=== PATIENT | male | born 1995 | race Caucasian/White ===

== ENCOUNTER → 2016-07-30 | Outpatient (CLI) | payer OTHER | LOC: BMCIMAGING 13:07 | PROVIDERS: ATTEND Family Medicine | DX: R68.89 Other general symptoms and signs (principal) | CPT/HCPCS: 76536-PO ==

== ENCOUNTER 2017-06-30 20:18 | Emergency (ER) | payer OTHER ==
--- NOTE | 2017-06-30 20:43 | EDPHY ---
H & P Stated Complaint: Pt was running and twisted his left ankle Source: Patient Exam Limitations: No limitations - Personal History Current Tetanus/Diphtheria Vaccine: Yes Current Tetanus Diphtheria and Acellular Pertussis (TDAP): Yes - Medical/Surgical History Hx Asthma: No Hx Chronic Respiratory Disease: No Hx Diabetes: No Hx Cardiac Disease: No Hx Renal Disease: No Hx Cirrhosis: No Hx Alcoholism: No Hx HIV/AIDS: No Hx Splenectomy or Spleen Trauma: No Other PMH: right wrist surgery - Social History Smoking Status: Never smoked Time Seen by Provider: 06/30/17 20:42 HPI/ROS: HPI: This is a 22-year-old male who presents with Chief Complaint: Pt was running and twisted his left ankle Location: Left ankle Quality: Twisted Duration: 2 4 hr prior to arrival Signs and Symptoms: No bleeding, no radiation, no numbness, no weakness, no tingling, no incontinence, + decreased range of motion, + swelling, + pain, no fever Timing: Acute Severity: Moderate Context: Patient reports that he was trail running and on his way down the hill his foot accidentally stepped on a rock and everted. Patient reported that he felt moderate, constant, nonradiating pain in the lateral aspect of his left ankle. He was able to walk down the hill where he called his mother to come pick him up. While in the car he noted that his left lateral ankle with swelling with decreased range of motion secondary to pain. He has no history of prior ankle sprains. Patient reports that pain is worsened with weight- bearing. Denies any paresthesias/numbness/weakness. Denies LOC/head injury/ neck pain/dizziness/nausea/vomiting/amnesia. Modifying Factors: Has not applied ice or taking any [id number] pain medications Comment: ROS: see HPI Constitutional: No fever, no chills, no weight loss Eyes: No blurred vision Respiratory: No shortness of breath, no cough Cardiovascular: No chest pain Gastrointestinal: No nausea, no vomiting no diarrhea Genitourinary: No dysuria Extremities: No myalgias Neurologic: No weakness, no numbness Skin: No rashes Hematologic: No bruising, no bleeding MEDICAL/SURGICAL/SOCIAL HISTORY: Medical history: Generally healthy. Does not take any regular medications. Surgical history: Right wrist surgery Social history: Nonsmoker. CONSTITUTIONAL: Extremely pleasant young adult white male, awake and alert, no obvious distress HEENT: Atraumatic and normocephalic, PERRL, EOMI. Nares patent; no rhinorrhea; no nasal mucosal edema. Tympanic membranes clear. Oropharynx clear, no exudate and moist pink mucosa. Airway patent. No lymphadenopathy. No meningismus. Cardiovascular: Normal S1/S2, regular rate, regular rhythm, without murmur rub or gallop. PULMONARY/CHEST: Symmetrical and nontender. Clear to auscultation bilaterally. Good air movement. No accessory muscle usage. ABDOMEN: Soft, nondistended, nontender, no rebound, no guarding, no peritoneal signs, no masses or organomegaly. No CVAT. EXTREMITIES: 2/2 pulses, strength 5/5, left Ankle: Plantar flexion to 50, dorsiflexion to 20. Foot inversion to 35 degree. Mild tenderness/swelling Anterior talofibular ligament. Moderate tenderness/swelling Calcaneofibular ligament, no tenderness/swelling posterior talofibular ligament, no tenderness/ swelling posterior inferior tibiofibular ligament. Achilles tendon intact. no deformities, no clubbing, no cyanosis or edema. NEUROLOGICAL: no focal neuro deficits. GCS 15. SKIN: Warm and dry, no erythema. no rash. Good capillary refill. (Larisa Hauser) Constitutional: Initial Vital Signs Temperature (C) 36.5 C 06/30/17 20:19 Heart Rate 98 06/30/17 20:19 Respiratory Rate 16 06/30/17 20:19 Blood Pressure 126/55 H 06/30/17 20:19 O2 Sat (%) 94 06/30/17 20:19 O2 Delivery Mode Room Air Allergies/Adverse Reactions: No Known Allergies Allergy (Unverified 06/30/17 20:23) Home Medications: Medication Instructions Recorded NK [No Known Home Meds] 06/30/17 Medical Decision Making - Diagnostics Imaging Results: Imaging Impressions Ankle X-Ray 06/30/17 20:24 Impression: 1. No acute fractures seen about the left ankle. 2. Moderate lateral ankle sprain. Procedures: Procedure: Splint placement. A left walker boot was applied by the Emergency Room studio technician. After application of the splint I returned and re-examined the patient. The splint was adequately immobilizing the joint and distal to the splint the patient's circulation and sensation was intact. (Larisa Hauser) ED Course/Re-evaluation: Ice pack applied Left ankle x-ray my read shows no fracture/dislocation; moderate soft tissue swelling in the lateral aspect noted Placed in walking boot; patient reports he already has crutches; advised rice therapy No signs of neurovascular compromise/tenting of skin/compartment syndrome/ extremities and joints examined above and below area of concern and are neurovascularly intact. This patient was seen under the supervision of my secondary supervising physician. I evaluated care for this patient independently. (Larisa Hauser) Differential Diagnosis: Differential diagnosis includes but is not limited to tibia fracture, fibula fracture, midfoot fracture, Lis Franc fracture, ligamentous tear, nerve injury. (Larisa Hauser) Other Provider: PHYSICIAN DOCUMENTATION: The patient was evaluated and managed by the Physician Anchor Operator. My co- signature indicates that I have reviewed this chart and I agree with the findings and plan of care as documented. I am the secondary supervising physician. (Alok Ken) Departure - Departure Disposition: Home, Routine, Self-Care Clinical Impression: Grade 2 ankle sprain Qualifiers: Encounter type: initial encounter Laterality: left Qualified Code(s): S93.402A - Sprain of unspecified ligament of left ankle, initial encounter Condition: Good Instructions: Ankle Sprain (ED), Crutch Instructions (ED), R.I.C.E. Treatment ( ED) Additional Instructions: Wear walking boot while out of bed until pain free. Use crutches to aid ambulation. Start with toe-touch weight-bearing status and advance as tolerated. Take Tylenol 650 mg every 4 hours and/or Ibuprofen 600 mg every 8 hours with food as needed for pain. Apply ice for 30 minutes at a time; 2-3 times per day for the next 1-2 days. Follow up with Orthopedics in 10-14 days if symptoms persist at which time they will evaluate and recommend with you if conservative management versus MRI ankle is indicated. The x-rays obtained in the emergency department today demonstrate no evidence of an obvious fracture. Sometimes fractures are not obvious on the initial set of x-rays performed in the ED. For this reason, you should have repeat x-rays performed in 7-10 days if you are having any pain exclude the possibility of an occult fracture. Return to the ER immediately if you experience new or worsening pain, discoloration, numbness, tingling, or any other symptoms that concern you. Referrals: Segundo Davis MD [Medical Doctor] - As per Instructions
[2017-06-30 21:03] VITALS: BP 122/71
== END 2017-06-30 21:11 | disposition home or self-care (01) ==
DX: S93.402A Sprain of unspecified ligament of left ankle, initial encounter (principal); X50.9XXA Other and unspecified overexertion or strenuous movements or postures, initial encounter; Y92.89 Other specified places as the place of occurrence of the external cause; Y99.8 Other external cause status; Y93.02 Activity, running
CPT/HCPCS: L4386